=== PATIENT | female | born 1945 | race Caucasian/White ===

== ENCOUNTER 2016-06-28 11:23 | Emergency (ER) | payer MEDICARE, OTHER ==
[2016-06-28 12:18] LABS: BASOPHIL 0.3 % (0-2); EOSINOPHIL 0.6 % (0-7); HCT 39.6 % (37.0-47.0); HGB 13.7 g/dl (12.5-16.0); LYMPHOCYTE 16.6 % (15-48); MCH 31.2 pg (25.0-31.0); MCHC 34.6 g/dL (32.0-36.0); MCV 90.2 fL (78.0-100.0); MPV 9.4 fL (6.0-9.5); NEUTROPHIL 74.5 % (41-80); PLT 320 K/uL (150-400); RBC 4.39 M/uL (4.20-5.40); RDW 12.1 % (11.5-14.0); WBC 6.6 K/uL (4.0-10.5)
[2016-06-28 12:27] LABS: ALBUMIN 5.3 g/dL (3.4-4.8); BILIRUBIN - TOTAL 0.5 mg/dL (0.1-1.0); CREATININE 0.9 mg/dL (0.5-1.0); GLOBULIN (CALCULATION) 2.7 g/dL (2.2-4.2); POTASSIUM 4.1 mmol/L (3.5-5.1)
== END 2016-06-28 14:49 | disposition home or self-care (01) ==
LOC: FER 11:23
PROVIDERS: Internal Medicine
DX: I10 Essential (primary) hypertension (principal); F41.9 Anxiety disorder, unspecified; E03.9 Hypothyroidism, unspecified; Z88.0 Allergy status to penicillin; Z88.2 Allergy status to sulfonamides; Z79.899 Other long term (current) drug therapy
CPT/HCPCS: 36415; 71010; 80053; 84484; 85025; 93005; J2060

== ENCOUNTER 2021-03-23 11:01 | Emergency (ER) | payer OTHER ==
[2021-03-23] MEDS ORDERED: NORCO 5-325 TA1 EACH PO (14:16)
[2021-03-24] MEDS ORDERED: SYNTHROID25 MCG PO (10:29)
[2021-03-24] MEDS ORDERED: LASIX40 MG PO (10:29)
[2021-03-24] MEDS ORDERED: VENTOLIN HFA IN18 GM INH (10:30)
[2021-03-24] MEDS ORDERED: SPIRIVA18 MCG INH (10:30)
[2021-03-24] MEDS ORDERED: NORVASC5 MG PO (10:31)
[2021-03-24] MEDS ORDERED: ZOCOR20 MG PO (10:31)
[2021-03-24] MEDS ORDERED: LOPRESSOR25 MG PO (10:31)
[2021-03-24] MEDS ORDERED: PRINIVIL20 MG PO (10:32)
[2021-03-24] MEDS ORDERED: BACLOFEN 20MG T20 MG PO (10:32)
[2021-03-29] MEDS ORDERED: FUROSEMIDE40 MG PO (11:52)
== END 2021-03-23 14:40 | disposition home or self-care (01) ==
LOC: FER 11:01
DX: S52.601A Unspecified fracture of lower end of right ulna, initial encounter for closed fracture (principal); S52.501A Unspecified fracture of the lower end of right radius, initial encounter for closed fracture; I10 Essential (primary) hypertension; J44.9 Chronic obstructive pulmonary disease, unspecified; Z20.822 Contact with and (suspected) exposure to COVID-19; Z88.1 Allergy status to other antibiotic agents; Z88.2 Allergy status to sulfonamides; Z87.891 Personal history of nicotine dependence; Z79.899 Other long term (current) drug therapy; W00.0XXA Fall on same level due to ice and snow, initial encounter
CPT/HCPCS: 73090; 73110; 96374; 96375; J2270; J2405; U0002

== ENCOUNTER → 2021-03-29 | Day surgery (SDC) | payer OTHER ==
[~2021-03-29] VITALS: Ht 165.1 cm; Wt 61.7 kg
[~2021-03-29] MED LIST: BACLOFEN 20MG T20 MG PO; FUROSEMIDE40 MG PO; LASIX40 MG PO; LOPRESSOR25 MG PO; NORCO 5-325 TA1 EACH PO; NORVASC5 MG PO; PRINIVIL20 MG PO; SPIRIVA18 MCG INH; SYNTHROID25 MCG PO; VENTOLIN HFA IN18 GM INH; ZOCOR20 MG PO
[2021-03-29 12:22] LABS: HCT 37.7 % (37.0-47.0); HGB 12.5 g/dl (12.5-16.0); MCH 30.3 pg (25.0-31.0); MCHC 33.2 g/dL (32.0-36.0); MCV 91.5 fL (78.0-100.0); MPV 9.6 fL (6.0-9.5); RBC 4.12 M/uL (4.20-5.40); WBC 5.3 K/uL (4.0-10.5)
[2021-03-29 12:42] LABS: ALBUMIN 3.6 g/dL (3.4-5.0); BILIRUBIN - TOTAL 0.6 mg/dL (0.2-1.0); BUN/CREAT RATIO (CALC) 9.8 RATIO; CREATININE 0.82 mg/dL (0.51-0.95); GLOBULIN (CALCULATION) 3.6 g/dL; TOTAL PROTEIN 7.2 g/dL (6.4-8.2)
== END | disposition home or self-care (01) ==
LOC: FAS 10:08
PROVIDERS: Orthopaedic Surgery
DX: S52.571A Other intraarticular fracture of lower end of right radius, initial encounter for closed fracture (principal); G56.01 Carpal tunnel syndrome, right upper limb; E03.9 Hypothyroidism, unspecified; J44.9 Chronic obstructive pulmonary disease, unspecified; I10 Essential (primary) hypertension; W00.9XXA Unspecified fall due to ice and snow, initial encounter; Z88.0 Allergy status to penicillin; Z88.2 Allergy status to sulfonamides
CPT/HCPCS: 36415; 71045; 73100; 76000; 80053; 93005; C1713; C1769; J1100; J2250; J2405; J2704; J2795; J3010; J7120